=== PATIENT | female | born 1955 | race Caucasian/White ===

== ENCOUNTER → 2016-07-24 | Day surgery (SDC) | payer MEDICARE ==
[~2016-07-24] VITALS: Ht 162.6 cm; Wt 64.9 kg
[~2016-07-24] MED LIST: BROVANA15 MCG/2 M INH; BUDESONIDE0.5 MG/2 M INH; LEVAQUIN500 MG PO; MIRTAZAPINE15 MG PO; SIMVASTATIN40 MG PO
== END | disposition home or self-care (01) ==
LOC: OR 06:48
PROVIDERS: Internal Medicine Gastroenterology
PROC: 0DBP8ZX Excision of Rectum, Via Natural or Artificial Opening Endoscopic, Diagnostic (ICD-10-PCS; 2016-07-24)
PROC: 0DBL8ZX Excision of Transverse Colon, Via Natural or Artificial Opening Endoscopic, Diagnostic (ICD-10-PCS; 2016-07-24)
PROC: 0DBN8ZX Excision of Sigmoid Colon, Via Natural or Artificial Opening Endoscopic, Diagnostic (ICD-10-PCS; principal; 2016-07-24 08:30)
DX: D12.3 Benign neoplasm of transverse colon (principal); D12.5 Benign neoplasm of sigmoid colon; K62.1 Rectal polyp; K63.89 Other specified diseases of intestine; K64.0 First degree hemorrhoids; J44.9 Chronic obstructive pulmonary disease, unspecified; F17.210 Nicotine dependence, cigarettes, uncomplicated; Z91.041 Radiographic dye allergy status; Z79.51 Long term (current) use of inhaled steroids; Z79.899 Other long term (current) drug therapy; Z90.49 Acquired absence of other specified parts of digestive tract; Z98.890 Other specified postprocedural states
CPT/HCPCS: J7030

== ENCOUNTER → 2016-10-27 | Outpatient (CLI) | payer MEDICARE | LOC: RAD 13:53 | DX: M25.561 Pain in right knee (principal) | CPT/HCPCS: 73562 ==

== ENCOUNTER → 2020-02-28 | Outpatient (CLI) | payer MEDICARE ==
[~2020-02-28] MED LIST changes: +AMITRIPTYLINE H25 MG PO; +ASPIRIN CHEWABL81 MG PO; +CEFPODOXIME PR200 MG PO; +CLEARLAX119 GM PO; +DOK100 M1 PO; +DULOXETINE HCL20 MG PO; +GABAPENTIN300 MG PO; +HYDROCODON-ACE1 EAC6 PO; +LIPITOR10 MG PO; +MEDROL4 MG PO; +NARCAN4 MG; +PROTONIX40 MG PO; +TIZANIDINE HCL2 MG PO
== END ==
LOC: EMI 13:38
DX: M25.562 Pain in left knee (principal); S83.242A Other tear of medial meniscus, current injury, left knee, initial encounter; M71.22 Synovial cyst of popliteal space [Baker], left knee; X58.XXXA Exposure to other specified factors, initial encounter
CPT/HCPCS: 73721

== ENCOUNTER 2020-05-06 10:49 | Emergency (ER) | payer MEDICARE ==
[~2020-05-06 10:49] MED LIST changes: -AMITRIPTYLINE H25 MG PO; -ASPIRIN CHEWABL81 MG PO; -CEFPODOXIME PR200 MG PO; -CLEARLAX119 GM PO; -DOK100 M1 PO; -DULOXETINE HCL20 MG PO; -GABAPENTIN300 MG PO; -HYDROCODON-ACE1 EAC6 PO; -LIPITOR10 MG PO; -NARCAN4 MG; -PROTONIX40 MG PO; -TIZANIDINE HCL2 MG PO
[2020-05-06 12:02] LABS: HEMOGLOBIN 14.2 gm/dl (12.3-15.3); RED BLOOD COUNT 4.61 M/UL (4.00-5.10); WHITE BLOOD COUNT 6.8 K/UL (4.5-11.0)
[2020-05-06 12:24] LABS: BUN/CREATININE RATIO 29 (0-10)
[2020-05-06] MEDS ORDERED: CLEARLAX119 GM PO (14:12)
[2020-05-06] MEDS ORDERED: CEFPODOXIME PR200 MG PO (14:13)
[2020-06-19] MEDS ORDERED: PROTONIX40 MG PO (07:01)
[2020-06-19] MEDS ORDERED: LIPITOR10 MG PO (07:02)
[2020-06-19] MEDS ORDERED: TIZANIDINE HCL2 MG PO (07:02)
[2020-06-19] MEDS ORDERED: DULOXETINE HCL20 MG PO (07:02)
[2020-06-19] MEDS ORDERED: DOK100 M1 PO (07:02)
[2020-06-19] MEDS ORDERED: GABAPENTIN300 MG PO (07:03)
[2020-06-19] MEDS ORDERED: AMITRIPTYLINE H25 MG PO (07:03)
[2020-06-19] MEDS ORDERED: NARCAN4 MG (07:04)
[2020-06-19] MEDS ORDERED: HYDROCODON-ACE1 EAC6 PO (07:05)
[2020-06-19] MEDS ORDERED: ASPIRIN CHEWABL81 MG PO (09:24)
== END 2020-05-06 14:26 | disposition home or self-care (01) ==
LOC: ER1 10:49
PROVIDERS: Student in an Organized Health Care Education/Training Program
DX: N39.0 Urinary tract infection, site not specified (principal); K59.00 Constipation, unspecified; J44.9 Chronic obstructive pulmonary disease, unspecified; F17.210 Nicotine dependence, cigarettes, uncomplicated; Z91.041 Radiographic dye allergy status; Z79.899 Other long term (current) drug therapy
CPT/HCPCS: 36600; 80053; 81001; 82550; 82553; 82803; 83605; 83690; 83874; 84484; 85025; 93005; 96374; 96375; 99284; J2270; J2405; J7120

== ENCOUNTER → 2020-06-07 | Outpatient (CLI) | payer MEDICARE ==
[~2020-06-07] MED LIST changes: +AMITRIPTYLINE H25 MG PO; +ASPIRIN CHEWABL81 MG PO; +CEFPODOXIME PR200 MG PO; +CLEARLAX119 GM PO; +DOK100 M1 PO; +DULOXETINE HCL20 MG PO; +GABAPENTIN300 MG PO; +HYDROCODON-ACE1 EAC6 PO; +LIPITOR10 MG PO; +NARCAN4 MG; +PROTONIX40 MG PO; +TIZANIDINE HCL2 MG PO
[2020-06-07 10:41] LABS: HEMOGLOBIN 14.3 gm/dl (12.3-15.3); RED BLOOD COUNT 4.6 M/UL (4.00-5.10); WHITE BLOOD COUNT 6.3 K/UL (4.5-11.0)
[2020-06-07 11:11] LABS: BUN/CREATININE RATIO 20 (0-10)
== END ==
LOC: OPSV2 05-31 12:00
PROVIDERS: Orthopaedic Surgery
DX: Z01.812 Encounter for preprocedural laboratory examination (principal); S83.242A Other tear of medial meniscus, current injury, left knee, initial encounter
CPT/HCPCS: 36415; 80048; 85025

== ENCOUNTER → 2020-06-19 | Day surgery (SDC) | payer MEDICARE ==
[~2020-06-19] VITALS: Ht 165.1 cm; Wt 69.4 kg
== END | disposition home or self-care (01) ==
LOC: OR 06-14 07:30
DX: S83.232A Complex tear of medial meniscus, current injury, left knee, initial encounter (principal); S83.282A Other tear of lateral meniscus, current injury, left knee, initial encounter; M94.262 Chondromalacia, left knee; M17.12 Unilateral primary osteoarthritis, left knee; I10 Essential (primary) hypertension; E78.5 Hyperlipidemia, unspecified; J44.9 Chronic obstructive pulmonary disease, unspecified; K21.9 Gastro-esophageal reflux disease without esophagitis; G35 Multiple sclerosis; F17.210 Nicotine dependence, cigarettes, uncomplicated; Z91.041 Radiographic dye allergy status; Z79.891 Long term (current) use of opiate analgesic; Z79.899 Other long term (current) drug therapy; W19.XXXA Unspecified fall, initial encounter
CPT/HCPCS: J0171; J0690; J1100; J2001; J2405; J2704; J3010; J7120

== ENCOUNTER → 2020-07-05 | Outpatient (CLI) | payer MEDICARE | LOC: HEART 5 11:14 | DX: J44.9 Chronic obstructive pulmonary disease, unspecified (principal) | CPT/HCPCS: 94060; 94729 ==

== ENCOUNTER → 2020-10-08 | Outpatient (CLI) | payer MEDICARE | LOC: EXRD 13:06 | DX: R22.1 Localized swelling, mass and lump, neck (principal) | CPT/HCPCS: 76536 ==

== ENCOUNTER → 2020-10-08 | Outpatient (CLI) | payer MEDICARE | LOC: RAD 11:50 | DX: M25.562 Pain in left knee (principal); M54.5 Low back pain; M25.552 Pain in left hip; M87.852 Other osteonecrosis, left femur; M51.36 Other intervertebral disc degeneration, lumbar region | CPT/HCPCS: 72110; 73502; 73564 ==

== ENCOUNTER → 2021-01-07 | Outpatient (CLI) | payer MEDICARE ==
[2021-01-07 14:29] LABS: HEMOGLOBIN 14.1 gm/dl (12.3-15.3); RED BLOOD COUNT 4.55 M/UL (4.00-5.10); WHITE BLOOD COUNT 6.9 K/UL (4.5-11.0)
[2021-01-07 14:48] LABS: BUN/CREATININE RATIO 20 (0-10)
== END ==
LOC: OPSV2 10:00 → EDSTATUS 10:00 → OPSV2 13:31
PROVIDERS: Orthopaedic Surgery
DX: Z01.818 Encounter for other preprocedural examination (principal); M87.9 Osteonecrosis, unspecified; M25.852 Other specified joint disorders, left hip; M19.90 Unspecified osteoarthritis, unspecified site; Z91.041 Radiographic dye allergy status; R94.31 Abnormal electrocardiogram [ECG] [EKG]
CPT/HCPCS: 36415; 80048; 85025; 93005

== ENCOUNTER → 2021-01-15 | Outpatient (CLI) | payer MEDICARE ==
[2021-01-15 14:12] LABS: BUN/CREATININE RATIO 22 (0-10)
== END ==
LOC: LAB 12:49
PROVIDERS: Orthopaedic Surgery
DX: Z01.812 Encounter for preprocedural laboratory examination (principal); M16.12 Unilateral primary osteoarthritis, left hip; M87.88 Other osteonecrosis, other site
CPT/HCPCS: 36415; 80048; 86850; 86900; 86901

== ENCOUNTER 2021-01-16 05:55 | Inpatient (IN) | payer MEDICARE ==
[~2021-01-16] VITALS: Ht 165.1 cm; Wt 69.9 kg
[2021-01-17 07:25] LABS: HEMOGLOBIN 11.9 gm/dl (12.3-15.3); RED BLOOD COUNT 3.9 M/UL (4.00-5.10); WHITE BLOOD COUNT 14.1 K/UL (4.5-11.0)
[2021-01-17 07:57] LABS: BUN/CREATININE RATIO 29 (0-10)
[2021-01-18 03:53] LABS: HEMOGLOBIN 11.6 gm/dl (12.3-15.3); RED BLOOD COUNT 3.7 M/UL (4.00-5.10); WHITE BLOOD COUNT 12.7 K/UL (4.5-11.0)
[2021-01-18 04:33] LABS: BUN/CREATININE RATIO 29 (0-10)
[2021-01-19 03:33] LABS: HEMOGLOBIN 10.8 gm/dl (12.3-15.3); RED BLOOD COUNT 3.49 M/UL (4.00-5.10); WHITE BLOOD COUNT 9.8 K/UL (4.5-11.0)
[2021-01-19 04:14] LABS: BUN/CREATININE RATIO 33 (0-10)
[2021-01-20 09:36] LABS: HEMOGLOBIN 10.3 gm/dl (12.3-15.3); RED BLOOD COUNT 3.29 M/UL (4.00-5.10); WHITE BLOOD COUNT 9.3 K/UL (4.5-11.0)
[2021-01-20 10:03] LABS: BUN/CREATININE RATIO 29 (0-10)
== END 2021-01-21 22:53 | disposition swing bed (61) | DRG 469 ==
LOC: OR 05:55 → EDSTATUS 13:00 → M/S 14:48
PROVIDERS: Nurse Practitioner Family; ADMIT Orthopaedic Surgery
PROC: 0SRB03A Replacement of Left Hip Joint with Ceramic Synthetic Substitute, Uncemented, Open Approach (ICD-10-PCS; principal; 2021-01-16 09:00)
DX: M16.12 Unilateral primary osteoarthritis, left hip (principal); J96.01 Acute respiratory failure with hypoxia; M87.852 Other osteonecrosis, left femur; D62 Acute posthemorrhagic anemia; Z20.822 Contact with and (suspected) exposure to COVID-19; I10 Essential (primary) hypertension; E78.5 Hyperlipidemia, unspecified; J44.9 Chronic obstructive pulmonary disease, unspecified; K21.9 Gastro-esophageal reflux disease without esophagitis; G35 Multiple sclerosis; K59.00 Constipation, unspecified; D64.9 Anemia, unspecified; H91.90 Unspecified hearing loss, unspecified ear; F17.210 Nicotine dependence, cigarettes, uncomplicated; Z90.49 Acquired absence of other specified parts of digestive tract; Z98.51 Tubal ligation status; Z98.49 Cataract extraction status, unspecified eye; Z80.3 Family history of malignant neoplasm of breast; Z80.0 Family history of malignant neoplasm of digestive organs; Z98.890 Other specified postprocedural states; Z79.899 Other long term (current) drug therapy; Z91.041 Radiographic dye allergy status
CPT/HCPCS: 36415; 36600; 71046; 72170; 76000; 80048; 82803; 85025; 85027; 86850; 86900; 86901; 94640; 94760; 97116-GP-CQ; 97162; 97166; 97530-GP-CQ; 97535; C1776; J0171; J0690; J1100; J1170; J2370; J2405; J2704; J2795; J7050; J7120; U0003

== ENCOUNTER → 2021-08-23 | Outpatient (CLI) | payer MEDICARE | LOC: MRI 12:09 | DX: G35 Multiple sclerosis (principal) | CPT/HCPCS: 36415; 70553; 82565; 84520; A9577 ==